=== PATIENT | female | born 1995 | race Caucasian/White ===

== ENCOUNTER 2018-03-13 16:50 | Emergency (ER) | payer OTHER, MEDICAID ==
[~2018-03-13] VITALS: Ht 157.5 cm; Wt 79.1 kg
[2018-03-13 17:21] VITALS: BP 125/84
[2018-03-13] MEDS ORDERED: ESOM20CA31 PO (17:26)
[2018-03-13] MEDS ORDERED: CALC500T7 PO (17:26)
[2018-03-13] MEDS ORDERED: PHEN12S PR (17:26)
== END 2018-03-13 18:29 | disposition home or self-care (01) ==
LOC: EMS 16:51
DX: O9A.213 Injury, poisoning and certain other consequences of external causes complicating pregnancy, third trimester (principal); S43.401A Unspecified sprain of right shoulder joint, initial encounter; Z3A.30 30 weeks gestation of pregnancy; X58.XXXA Exposure to other specified factors, initial encounter; Y93.89 Activity, other specified; Y92.89 Other specified places as the place of occurrence of the external cause; Y99.8 Other external cause status

== ENCOUNTER 2018-03-27 20:44 | Observation (INO) | payer OTHER, MEDICAID ==
[~2018-03-27] VITALS: Ht 157.5 cm; Wt 80.3 kg
[~2018-03-27 20:44] MED LIST: CALC500T7 PO; ESOM20CA31 PO; PHEN12S PR
[2018-03-27 22:08] VITALS: BP 113/64
== END 2018-03-27 21:55 | disposition home or self-care (01) ==
LOC: 4S 20:44
PROVIDERS: ADMIT Obstetrics & Gynecology; ATTEND Obstetrics & Gynecology
DX: O26.893 Other specified pregnancy related conditions, third trimester (principal); R10.2 Pelvic and perineal pain; O62.9 Abnormality of forces of labor, unspecified; Z3A.32 32 weeks gestation of pregnancy

== ENCOUNTER 2018-05-02 17:48 | Observation (INO) | payer OTHER, MEDICAID ==
[~2018-05-02] VITALS: Ht 160 cm; Wt 81.2 kg
[2018-05-02 19:18] VITALS: BP 117/71
[2018-05-02] MEDS ORDERED: RANI150T7 PO (19:18)
[2018-05-02] MEDS ORDERED: RINGERS SOLUTION,LACTATED 1,000 ML IV ONE ×3 (19:21→19:45)
[2018-05-02] MEDS ORDERED: ONDANSETRON HCL 4 MG/2 ML VIAL ONE (19:22)
[2018-05-02] MEDS ORDERED: ACETAMINOPHEN 325 MG TABLET PO ONE (19:30)
[2018-05-02] MEDS ORDERED: ONDANSETRON HCL 4 MG/2 ML VIAL IVP ONE (19:30)
[2018-05-02 22:03] LABS: INFLUENZA TYPE A NEGATIVE FOR TYPE A (NEGATIVE); INFLUENZA TYPE B NEGATIVE FOR TYPE B (NEGATIVE)
[2018-05-03] MEDS ORDERED: RINGERS SOLUTION,LACTATED 1,000 ML IV ONE (19:30)
== END 2018-05-02 23:07 | disposition home or self-care (01) ==
LOC: 4S 17:48
PROVIDERS: ADMIT Obstetrics & Gynecology; ATTEND Obstetrics & Gynecology
DX: O21.2 Late vomiting of pregnancy (principal); O36.8330 Maternal care for abnormalities of the fetal heart rate or rhythm, third trimester, not applicable or unspecified; Z3A.37 37 weeks gestation of pregnancy
CPT/HCPCS: 81002; 87804; 96361; 96374; G0378; J2405; J7120

== ENCOUNTER 2018-05-15 09:44 | Inpatient (IN) | payer OTHER, MEDICAID ==
[~2018-05-15 09:44] MED LIST changes: +RANI150T7 PO
[2018-05-15] MEDS ORDERED: RINGERS SOLUTION,LACTATED 1,000 ML IV ONE (09:47)
[2018-05-15] MEDS ORDERED: PREN1TAB80 PO (09:51)
[2018-05-15] MEDS ORDERED: METOCLOPRAMIDE HCL 5 MG/ML 2 ML VIAL IVP ONE (10:00)
[2018-05-15] MEDS ORDERED: CITRIC ACID/SODIUM CITRATE 30 ML SOLUTION UDCUP PO ONE (10:00)
[2018-05-15 10:12] LABS: BASOPHILS % (AUTO) 0.4 % (0.0-2.0); EOSINOPHILS % (AUTO) 1.8 % (1.0-6.0); HEMATOCRIT 30.6 % (36-46); HEMOGLOBIN 9.8 g/dL (12.0-16.0); LYMPHOCYTES # (AUTO) 2.9 K/uL (1.0-4.8); LYMPHOCYTES % (AUTO) 22.5 % (22.0-44.0); MEAN CORPUSCULAR HEMOGLOBIN 27.7 pg (26.0-34.0); MEAN CORPUSCULAR HGB CONC 32.1 G/dL (31.0-37.0); MEAN CORPUSCULAR VOLUME 86 fL (80-100); MONOCYTES # (AUTO) 0.9 K/uL (0.1-1.0); MONOCYTES % (AUTO) 6.8 % (2.0-9.0); NEUTROPHILS # (AUTO) 8.7 K/uL (1.8-7.7); NEUTROPHILS % (AUTO) 68.5 % (40.0-70.0); PLATELET COUNT (AUTO) 328 K/uL (150-450); RED BLOOD CELL COUNT(AUTO) 3.54 MIL/uL (4.00-5.20); RED CELL DISTRIBUTION WIDTH 14.7 % (11.5-14.5)
[2018-05-15 10:43] VITALS: BP 124/82
[2018-05-15] MEDS ORDERED: BUPIVACAINE HCL/DEX-WATER/PF 0.75% 2 ML AMP ONE (12:23)
[2018-05-15] MEDS ORDERED: FentaNYL CITRATE-PF 100 MCG/2 ML VIAL ONE (12:23)
[2018-05-15] MEDS ORDERED: ACETAMINOPHEN 1000 MG/ISO-OSM 100 ML IV ONE (12:23)
[2018-05-15] MEDS ORDERED: MORPHINE SULFATE/PF 0.5 MG/ML 10 ML AMP ONE (12:23)
[2018-05-15] MEDS ORDERED: MORPHINE SULFATE 10 MG/ML SYRINGE IVP PRN (13:15)
[2018-05-15] MEDS ORDERED: DEXAMETHASONE SOD PHOS 4 MG/ML VIAL IVP PRN (13:15)
[2018-05-15] MEDS ORDERED: DiphenhydrAMINE HCL 50 MG/ML VIAL IVP PRN (13:15)
[2018-05-15] MEDS ORDERED: NALOXONE HCL 0.4 MG/ML VIAL IVP PRN (13:15)
[2018-05-15] MEDS ORDERED: FentaNYL CITRATE-PF 100 MCG/2 ML VIAL IVP PRN (13:15)
[2018-05-15] MEDS ORDERED: NALBUPHINE HCL 10 MG/ML VIAL IVP PRN ×3 (13:15)
[2018-05-15] MEDS ORDERED: ONDANSETRON HCL 4 MG/2 ML VIAL IVP PRN ×2 (13:15)
[2018-05-15] MEDS ORDERED: GUM MASTIC/STORAX/MSAL/ALCOHOL LIQUID 0.67 ML VIAL TP ONE (13:21)
[2018-05-15] MEDS ORDERED: OXYTOCIN 20 UNITS/LACT RINGERS 1,000 ML IV SCH (13:40)
[2018-05-15] MEDS ORDERED: GLYCERIN/WITCH HAZEL LEAF 40 PADS JAR TP PRN (13:45)
[2018-05-15] MEDS ORDERED: OxyCODONE HCL/ACETAMINOPHEN 5-325 MG TABLET PO PRN (13:45)
[2018-05-15] MEDS ORDERED: DEXTROSE 5%-0.45% SODIUM CHL 1,000 ML IV ONE (13:52)
[2018-05-15] MEDS ORDERED: NALBUPHINE HCL 10 MG/ML VIAL ONE (13:52)
[2018-05-15] MEDS: DEXTROSE 5%-0.45% SODIUM CHL 1,000 ML IV SCH ×2 (14:57→22:17)
[2018-05-15] MEDS: DiphenhydrAMINE HCL 50 MG/ML VIAL IVP PRN (17:34)
[2018-05-15] MEDS ORDERED: OXYGEN THERAPY IH SCH ×3 (20:00)
[2018-05-15] MEDS: ACETAMINOPHEN 1000 MG/ISO-OSM 100 ML IV SCH (22:13)
[2018-05-16] MEDS: DiphenhydrAMINE HCL 50 MG/ML VIAL IVP PRN (00:59)
[2018-05-16 06:10] LABS: BASOPHILS % (AUTO) 0.3 % (0.0-2.0); EOSINOPHILS % (AUTO) 1.6 % (1.0-6.0); HEMATOCRIT 29.2 % (36-46); HEMOGLOBIN 9.4 g/dL (12.0-16.0); LYMPHOCYTES # (AUTO) 2.7 K/uL (1.0-4.8); LYMPHOCYTES % (AUTO) 15.5 % (22.0-44.0); MEAN CORPUSCULAR HEMOGLOBIN 27.9 pg (26.0-34.0); MEAN CORPUSCULAR HGB CONC 32.2 G/dL (31.0-37.0); MEAN CORPUSCULAR VOLUME 87 fL (80-100); MONOCYTES # (AUTO) 1.7 K/uL (0.1-1.0); MONOCYTES % (AUTO) 9.7 % (2.0-9.0); NEUTROPHILS # (AUTO) 12.5 K/uL (1.8-7.7); NEUTROPHILS % (AUTO) 72.9 % (40.0-70.0); PLATELET COUNT (AUTO)-OB 292 K/uL (150-450); RED BLOOD CELL COUNT(AUTO) 3.37 MIL/uL (4.00-5.20); RED CELL DISTRIBUTION WIDTH 14.7 % (11.5-14.5)
[2018-05-16] MEDS: DEXTROSE 5%-0.45% SODIUM CHL 1,000 ML IV SCH (06:18)
[2018-05-16] MEDS: ACETAMINOPHEN 1000 MG/ISO-OSM 100 ML IV SCH (06:18)
[2018-05-16] MEDS ORDERED: ONDANSETRON HCL 4 MG/2 ML VIAL IVP ONE (06:22)
[2018-05-16] MEDS ORDERED: OXYTOCIN 10 UNITS/ML VIAL IM ONE (06:22)
[2018-05-16] MEDS ORDERED: EPHEDrine SULFATE 50 MG/ML VIAL IM ONE (06:22)
[2018-05-16] MEDS ORDERED: 0.9% SODIUM CHLORIDE 10 ML VIAL IVP ONE (06:22)
[2018-05-16] MEDS: OxyCODONE HCL/ACETAMINOPHEN 5-325 MG TABLET PO PRN ×2 (09:27→14:00)
[2018-05-16] MEDS: MAGNESIUM HYDROXIDE SUSPENSION 30 ML UDCUP PO SCH ×2 (09:27→20:24)
[2018-05-16] MEDS: IBUPROFEN 600 MG TABLET PO PRN ×2 (14:00→20:25)
[2018-05-16] MEDS ORDERED: LANOLIN 7 GM OINTMENT TP ONE ×2 (14:18→14:30)
[2018-05-17] MEDS: OxyCODONE HCL/ACETAMINOPHEN 5-325 MG TABLET PO PRN ×2 (00:26→12:45)
[2018-05-17] MEDS: IBUPROFEN 600 MG TABLET PO PRN ×2 (03:58→12:45)
[2018-05-17] MEDS: MAGNESIUM HYDROXIDE SUSPENSION 30 ML UDCUP PO SCH (07:48)
[2018-05-17] MEDS ORDERED: FERR-89 PO (13:19)
[2018-05-17] MEDS ORDERED: DSS100 PO (13:19)
[2018-05-17] MEDS ORDERED: IBUP-2071 PO (13:19)
[2018-05-17] MEDS ORDERED: LANOLIN 7 GM OINTMENT TP ONE (14:47)
== END 2018-05-17 15:10 | disposition home or self-care (01) | DRG 788 ==
LOC: 4S 09:44 → OBSVTOIN 09:44
PROVIDERS: ADMIT Obstetrics & Gynecology; ATTEND Obstetrics & Gynecology
PROC: 10D00Z1 Extraction of Products of Conception, Low, Open Approach (ICD-10-PCS; principal; 2018-05-15)
DX: O34.211 Maternal care for low transverse scar from previous cesarean delivery (principal); Z3A.39 39 weeks gestation of pregnancy; Z37.0 Single live birth; O69.81X0 Labor and delivery complicated by cord around neck, without compression, not applicable or unspecified
CPT/HCPCS: 86850; 86900; 86901; 87081; J0131; J0690; J1200; J2270; J2274; J2300; J2405; J2590; J2765; J3010; J3490; J7120